=== PATIENT | male | born 1965 | race Caucasian/White ===

== ENCOUNTER 2022-09-09 09:39 | Emergency (ER) | payer OTHER, SELFPAY ==
[2022-09-09] VITALS (11 sets, daily range): BP systolic 95–151; BP diastolic 56–96; PULSE 81–94; RESP 18; TEMP 36.7; O2SAT 97–100; BMI 25.0
--- NOTE | 2022-09-09 10:05 | CRLHL7_ITS ---
For Patients: As a result of the 21st Century Cures Act, medical imaging exams and procedure reports are released immediately into your electronic medical record. You may view this report before your referring provider. If you have questions, please contact your health care provider. INDICATION: Right lower quadrant abdominal pain COMPARISON: None TECHNIQUE: CT examination of the abdomen and pelvis was performed following the uneventful intravenous administration of 76 cc of Isovue 370. Thin section axial images were obtained from the lung bases through the pubic symphysis. Oral contrast was not administered. Please note that all CT scans at this facility use dose modulation, iterative reconstruction, and/or weight-based dosing when appropriate to reduce radiation dose to as low as reasonably achievable. FINDINGS: LUNG BASES: The lung bases as visualized appear normal.The heart size is normal at the lung bases. LIVER/BILIARY SYSTEM:The liver is normal in size and configuration. There is no focal mass and there is no intra- or extra hepatic biliary ductal dilatation.Steatosis. Cholelithiasis without indication of acute cholecystitis or common duct obstruction. ADRENALS: Normal KIDNEYS, URETERS and BLADDER:Normal size kidneys. A few tiny lesions are noted bilaterally that are too small to characterize but likely cysts. No visible calculus. No obstructive uropathy. Mild bladder wall thickening which is probably due to chronic bladder outlet obstruction, less likely infection. Correlate with urinalysis. SPLEEN:Normal appearance. PANCREAS: Appears normal. RETROPERITONEUM and MESENTERY: There is no mass, adenopathy or aortic aneurysm. Atherosclerotic vascular calcifications GASTROINTESTINAL SYSTEM: Acute sigmoid diverticulitis. The sigmoid is redundant and the portion that is inflamed and this patient is in the right lower quadrant. Significant inflammatory changes in the sigmoid mesocolon. No free air or collection. PELVIS: Mildly enlarged prostate. OSSEOUS STRUCTURES and ABDOMINAL WALL: There is an age-appropriate appearance of the osseous structures.No significant abdominal wall defect. OTHER: No free fluid or free air. IMPRESSION: 1. Acute uncomplicated sigmoid diverticulitis. The sigmoid is redundant in this patient and the inflamed portion of the sigmoid is in the right lower quadrant. 2. Hepatic steatosis. Cholelithiasis without evidence of acute cholecystitis or common duct obstruction. 3. Bladder wall thickening probably due to chronic bladder outlet obstruction. Chronic cystitis can create this appearance. Correlate with urinalysis. Please note that all CT scans at this facility use dose modulation, iterative reconstruction, and/or weight-based dosing when appropriate to reduce radiation dose to as low as reasonably achievable. Dictated by Guru Pollard MD @ 09/09/2022 10:41:56 AM (Electronically Signed)
--- NOTE | 2022-09-09 10:07 | ED_ITS ---
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 He did notice it when he drove any hit bumps in the car and it would bother his stomach. He has had no recent respiratory illness, no cough cold is generally quite healthy. Denies diabetes hypertension heart disease. He has not any difficulty breathing recently. He does not feel hungry today. He has not had vomiting or diarrhea. No dysuria or frequency. No hematuria Related Data Previous Rx's Medication Instructions Recorded amoxicillin 500 mg-potassium 1 tab PO BID 7 days #14 tabs 09/09/22 clavulanate 125 mg tablet (Augmentin) hydrocodone 7.5 mg-acetaminophen 1 tab PO Q8H PRN pain #14 tabs 09/09/22 325 mg tablet Allergies Allergy/AdvReac Type Severity Reaction Status Date / Time No Known Drug Allergies Allergy Verified 09/09/22 10:23 Review of Systems Status of ROS: Reports: 10 or more systems reviewed and unremarkable except as noted in History and below PFSH PFS Social History Smoking Status: Current every day smoker What tobacco products do you use: cigarettes Smoking packs per day: 0.5 Smoking cigarettes per day: 10.0 Years smoked: 30 Smoking pack-years: 15.00 Do you use any of these nicotine containing products: None How often do you have a drink containing alcohol: 2-4 times a month How many standard drinks containing alcohol do you have on a typical day: 3 or 4 How often do you have six or more drinks on one occasion: Monthly AUDIT-C Alcohol total score: 5 Non-prescribed substance use: denies use service: No Exam Narrative: Exam Narrative: Objective: Patient's vital signs unremarkable HEENT is unremarkable Neck is supple Chest is clear Heart rhythm regular no murmur Abdomen benign soft in the left side on the right side he has got voluntary guarding and has rebound, no palpable mass denies any symptoms Extremities are no edema neurologic nonfocal Const: Vital Signs, click to edit/add: Vital Signs - 24 hr 09/09/22 09:45 09/09/22 09:45 09/09/22 09:46 Temperature 98.1 F Pulse Rate 87 87 Pulse Rate [Femora l] 86 Respiratory Rate 18 Blood Pressure 136/88 Blood Pressure [Le ft Upper Arm] 136/88 Pulse Oximetry 99 99 100 Oxygen Delivery Me thod Room Air 09/09/22 10:00 09/09/22 10:01 09/09/22 10:32 Temperature Pulse Rate 94 94 Pulse Rate [Femora l] Respiratory Rate Blood Pressure 141/96 H 95/56 L Blood Pressure [Le ft Upper Arm] Pulse Oximetry 98 98 Oxygen Delivery Me thod 09/09/22 10:37 09/09/22 11:00 09/09/22 11:02 Temperature Pulse Rate 87 90 92 Pulse Rate [Femora l] Respiratory Rate Blood Pressure 151/84 H Blood Pressure [Le ft Upper Arm] Pulse Oximetry 97 97 97 Oxygen Delivery Me thod 09/09/22 10:00 09/09/22 11:03 09/09/22 11:30 Temperature Pulse Rate 88 83 Pulse Rate [Femora l] Respiratory Rate Blood Pressure Blood Pressure [Le ft Upper Arm] Pulse Oximetry 98 97 98 Oxygen Delivery Me thod 09/09/22 11:32 Temperature Pulse Rate 81 Pulse Rate [Femora l] Respiratory Rate Blood Pressure 130/91 H Blood Pressure [Le ft Upper Arm] Pulse Oximetry 97 Oxygen Delivery Me thod Course Vital Signs Vital signs: Initial Vital Signs Temperature 98.1 F 09/09/22 09:45 Temperature Source Temporal Artery Scan 09/09/22 09:45 Pulse Rate 87 09/09/22 09:45 Pulse Rhythm 09/09/22 09:45 Respiratory Rate 18 09/09/22 09:45 Blood Pressure 136/88 09/09/22 09:45 Blood Pressure Mean 104 09/09/22 09:45 Blood Pressure Position Supine 09/09/22 09:45 Pulse Oximetry 99 09/09/22 09:45 Oxygen Delivery Method 09/09/22 09:45 Vital Signs Temperature 98.1 F 09/09/22 09:45 Pulse Rate 87 09/09/22 09:45 Respiratory Rate 18 09/09/22 09:45 Blood Pressure 136/88 09/09/22 09:45 Pulse Oximetry 99 09/09/22 09:45 Oxygen Delivery Method 09/09/22 09:45 Temperature 98.1 F 09/09/22 09:45 Pulse Rate 81 09/09/22 11:32 Respiratory Rate 18 09/09/22 09:45 Blood Pressure 130/91 H 09/09/22 11:32 Pulse Oximetry 97 09/09/22 11:32 Oxygen Delivery Method 09/09/22 09:45 Medical Decision Making MDM Narrative Medical decision making narrative: Patient is a 49 year white male who has been generally healthy, no intra- abdominal surgery, and has had a couple day of progressive abdominal discomfort. Localized to his right lower quadrant, has voluntary guarding and peritoneal inflammation signs. Rule out appendicitis, rule out diverticulitis, rule out obstruction. Patient will get IV fluid, pain control, labs, CT scan of his abdomen pelvis with IV contrast. Disposition pending findings. The patient was drinking fluids this morning in the form of soda pop, had an eaten solid food since midnight Lab Data Labs: Lab Results 09/09/22 09/09/22 09/09/22 Range/Units 09:59 10:05 10:20 WBC 13.46 H (4.50-11.00) K/uL RBC 5.30 (4.30-5.90) m/uL Hgb 14.7 (13.5-17.5) gm/dL Hct 44.0 (37.0-53.0) % MCV 83 (80-100) fL MCH 28 (26-34) pg MCHC 33 (32-36) gm/dL RDW Coeff of Elda 12.9 (11.5-15.5) % Plt Count 201 (140-440) K/uL Neut % (Auto) 78.1 H (42.0-72.0) % Lymph % (Auto) 11.3 L (20-44) % [place] % (Auto) 8.8 (0.0-11.0) % Eos % (Auto) 1.4 (0.0-7.0) % Baso % (Auto) 0.3 (0.0-3.0) % Neut # (Auto) 10.50 H (1.7-7.0) K/uL Lymph # (Auto) 1.50 (0.90-2.90) K/uL [place] # (Auto) 1.20 H (0.00-0.90) K/UL Eos # (Auto) 0.20 (0.00-0.50) K/uL Baso # (Auto) 0.00 (0.00-0.30) K/uL Sodium (135-149) mmol/L Potassium (3.6-5.1) mmol/L Chloride (96-114) mmol/L Carbon Dioxide (20-32) mmol/L BUN (7-30) mg/dL Creatinine (0.5-1.5) mg/dL Estimated Creat Clear Estimated GFR ml/min Glucose (60-115) mg/dL Calcium (8.4-10.6) mg/dL Total Bilirubin (0.1-1.5) mg/dL Direct Bilirubin (0.0-0.5) mg/dL AST (12-35) U/L ALT (4-50) U/L Alkaline Phosphatase (40-150) U/L C-Reactive Protein (0.5-1.0) mg/dL Total Protein (6.0-8.3) g/dL Albumin (3.3-5.0) g/dL Amylase (18-89) U/L Urine Color Yellow (Yellow) Urine Appearance Clear (Clear) Urine pH 6.5 (5.0-8.5) Ur Specific [place] 1.025 (1.000-1.030) Urine Protein Negative (Negative) Urine Glucose (UA) Negative (Negative) Urine Ketones Negative (Negative) Urine Blood Negative (Negative) Urine Nitrite Negative (Negative) Urine Bilirubin Negative (Negative) Urine Urobilinogen 0.2 (0.2-1.0) Ur Leukocyte Esterase Negative (Negative) Urine RBC 0-2 (0-2) Urine WBC 0-2 (0-5) Ur Squamous Epith Cells None (None-Few) Urine Bacteria None (None) SARS-CoV-2 (PCR) Negative SARS-CoV-2 (Negative) 09/09/22 Range/Units 10:36 WBC (4.50-11.00) K/uL RBC (4.30-5.90) m/uL Hgb (13.5-17.5) gm/dL Hct (37.0-53.0) % MCV (80-100) fL MCH (26-34) pg MCHC (32-36) gm/dL RDW Coeff of Elda (11.5-15.5) % Plt Count (140-440) K/uL Neut % (Auto) (42.0-72.0) % Lymph % (Auto) (20-44) % [place] % (Auto) (0.0-11.0) % Eos % (Auto) (0.0-7.0) % Baso % (Auto) (0.0-3.0) % Neut # (Auto) (1.7-7.0) K/uL Lymph # (Auto) (0.90-2.90) K/uL [place] # (Auto) (0.00-0.90) K/UL Eos # (Auto) (0.00-0.50) K/uL Baso # (Auto) (0.00-0.30) K/uL Sodium 136 (135-149) mmol/L Potassium 4.1 (3.6-5.1) mmol/L Chloride 103 (96-114) mmol/L Carbon Dioxide 26 (20-32) mmol/L BUN 12 (7-30) mg/dL Creatinine 0.7 (0.5-1.5) mg/dL Estimated Creat Clear 103.80 Estimated GFR 107 ml/min Glucose 108 (60-115) mg/dL Calcium 9.0 (8.4-10.6) mg/dL Total Bilirubin 0.8 (0.1-1.5) mg/dL Direct Bilirubin 0.2 (0.0-0.5) mg/dL AST 16 (12-35) U/L ALT 15 (4-50) U/L Alkaline Phosphatase 55 (40-150) U/L C-Reactive Protein 7.1 H (0.5-1.0) mg/dL Total Protein 7.2 (6.0-8.3) g/dL Albumin 4.2 (3.3-5.0) g/dL Amylase 130 H (18-89) U/L Urine Color (Yellow) Urine Appearance (Clear) Urine pH (5.0-8.5) Ur Specific [place] (1.000-1.030) Urine Protein (Negative) Urine Glucose (UA) (Negative) Urine Ketones (Negative) Urine Blood (Negative) Urine Nitrite (Negative) Urine Bilirubin (Negative) Urine Urobilinogen (0.2-1.0) Ur Leukocyte Esterase (Negative) Urine RBC (0-2) Urine WBC (0-5) Ur Squamous Epith Cells (None-Few) Urine Bacteria (None) SARS-CoV-2 (PCR) (Negative) Discharge Plan Discharge Clinical Impression: Acute abdominal pain, Diverticulitis of sigmoid colon Patient Disposition: Home, Self-Care Condition: Stable Instructions: Diverticulitis (ED), Diverticulitis Diet (ED) Additional Instructions: Light activity, off work till next Wednesday, recheck with primary care in 2 days. Would recommend antibiotics at home will call those into pharmacy. Pain control as needed. Light diet as tolerated may advance as tolerated, light activity. Activity Level: Light activity Diet Detail: Liquid diet advance diet as tolerated Prescriptions: New amoxicillin-pot clavulanate [Augmentin] 500-125 mg tablet 1 tab PO BID 7 Days Qty: 14 0RF hydrocodone-acetaminophen 7.5-325 mg tablet 1 tab PO Q8H PRN (Reason: pain) Qty: 14 0RF Stand Alone Forms: [facility] Info Instructions
[2022-09-09 10:23] LABS: Appearance Urine Clear (Clear); Bilirubin Urine Negative (Negative); Blood Urine Negative (Negative); Color Urine Yellow (Yellow); Glucose Urine Negative (Negative); Ketones Urine Negative (Negative); Leukocyte Esterase Urine Negative (Negative); Nitrite Urine Negative (Negative); Protein Urine Negative (Negative); Specific Gravity Urine 1.025 (1.000-1.030); Urobilinogen Urine 0.2 (0.2-1.0); pH Urine 6.5 (5.0-8.5)
[2022-09-09 10:29] LABS: RBC Urine 0-2 (0-2); WBC Urine 0-2 (0-5)
[2022-09-09] MEDS: MORPHINE 4 MG/ML INJ IVP (10:39)
[2022-09-09] MEDS: 0.9 % SODIUM CHLORIDE 500 ML 500 ML IV (10:40)
[2022-09-09 10:44] LABS: Basophils Percent Auto 0.3 % (0.0-3.0); Eosinophils Percent Auto 1.4 % (0.0-7.0); Hemoglobin* 14.7 gm/dL (13.5-17.5); Immature Granulocytes Pct Auto 0.1 %; Lymphocytes Percent Auto 11.3 % (20-44); Mean Corpuscular HGB Conc 33 gm/dL (32-36); Mean Corpuscular Hemoglobin 28 pg (26-34); Mean Corpuscular Volume 83 fL (80-100); Monocytes Percent Auto 8.8 % (0.0-11.0); Neutrophils Percent Auto 78.1 % (42.0-72.0); Platelet Count* 201 K/uL (140-440); RDW Coefficient of Variation % 12.9 % (11.5-15.5); White Blood Count* 13.46 K/uL (4.50-11.00)
[2022-09-09 10:54] LABS: SARS PCR* Negative SARS-CoV-2 (Negative)
[2022-09-09 10:55] LABS: Slide Review Reflex No
[2022-09-09 10:58] LABS: Chloride* 103 mmol/L (96-114)
[2022-09-09 10:59] LABS: Albumin* 4.2 g/dL (3.3-5.0); Sodium* 136 mmol/L (135-149)
[2022-09-09 11:00] LABS: Potassium* 4.1 mmol/L (3.6-5.1)
[2022-09-09 11:02] LABS: Amylase* 130 U/L (18-89); Aspartate Amino Transferase* 16 U/L (12-35); Bilirubin Direct* 0.2 mg/dL (0.0-0.5); Bilirubin Total* 0.8 mg/dL (0.1-1.5); Carbon Dioxide* 26 mmol/L (20-32); Creatinine* 0.7 mg/dL (0.5-1.5); Estimated Glomerular Filt Rate 107 ml/min; Total Protein* 7.2 g/dL (6.0-8.3)
[2022-09-09 11:03] LABS: Alanine Aminotransferase* 15 U/L (4-50); Alkaline Phosphatase* 55 U/L (40-150); Blood Urea Nitrogen* 12 mg/dL (7-30); Glucose* 108 mg/dL (60-115)
[2022-09-09 11:05] LABS: C Reactive Protein* 7.1 mg/dL (0.5-1.0)
[2022-09-09] MEDS: AMPICILLIN/SULBACTAM 3 GM in 0.9 % SODIUM CHLORIDE Mini-bag 100 ML IVPB (11:15)
== END 2022-09-09 11:50 | disposition home or self-care (01) ==
PROVIDERS: Emergency Provider Family Medicine; PCP Family Medicine
DX: K57.30 Diverticulosis of large intestine without perforation or abscess without bleeding (principal)
CPT/HCPCS: 36415; 74177; 80048; 80076; 81001; 82150; 85025; 86140; 87086; 87635; 94761; 96365; 96375; 99284; J0295; J2270; J7120; Q9967

== ENCOUNTER 2024-10-13 10:39 | Outpatient (CLI) | payer OTHER, SELFPAY ==
--- NOTE | 2024-10-13 12:41 | W.ANESCHARGE ---
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
--- NOTE | 2024-10-13 13:00 | W.ANESCHARGE ---
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
== END 2024-10-13 10:40 | disposition home or self-care (01) ==
LOC: OP CLINIC 10:43
PROVIDERS: PCP Family Medicine; Visit Provider Internal Medicine Gastroenterology
DX: Z12.11 Encounter for screening for malignant neoplasm of colon (principal); D12.4 Benign neoplasm of descending colon
CPT/HCPCS: 00811; 00812; 45385; 88305; J2704